=== PATIENT | male | born 1960 | race Caucasian/White ===

== ENCOUNTER 2020-12-20 19:20 | Emergency (ER) | payer OTHER, SELFPAY ==
[2020-12-20 19:27] VITALS: BP 134/67; PULSE 104; RESP 18; TEMP 36.4; O2SAT 99
[2020-12-20 19:36] VITALS: BP 134/67; PULSE 104; RESP 18; TEMP 36.4; O2SAT 99
--- NOTE | 2020-12-20 19:36 | ED.SKABFB ---
HPI - Skin/Abscess/Foreign Bdy General Chief complaint: Skin/Abscess/Foreign Body Stated complaint: spider bite Time Seen by Provider: 12/20/20 19:36 History of Present Illness HPI narrative: Puma Wright is a 60 yo obese male with a PMH of diabetes, HTN, high cholesterol, major depression, who comes to [facility] with a medial lesion of his knee that is large and reddened that he says is a spider bite. Has been there for the last 4 days; he has been washing it and putting Neosporin on it but it has continued to enlarge. Pain is rated a 6 out of 10 at all times He states his blood sugars under control, is afebrile, no nausea, vomiting, diarrhea, mildly tachycardic. Related Data Home Medications Medication Instructions Recorded Confirmed atorvastatin 80 mg PO DAILY 12/20/20 12/20/20 ezetimibe 10 mg PO DAILY 12/20/20 12/20/20 insulin glargine [Basaglar KwikPen 20 unit SUBCUT DAILY 12/20/20 12/20/20 U-100 Insulin] lisinopril-hydrochlorothiazide 1 tablet PO BID 12/20/20 12/20/20 metformin 1,000 mg PO BID 12/20/20 12/20/20 metformin 500 mg PO .QAM 12/20/20 12/20/20 metoprolol succinate 25 mg PO DAILY 12/20/20 12/20/20 Allergies Allergy/AdvReac Type Severity Reaction Status Date / Time No Known Allergies Allergy Unknown Verified 12/20/20 19:27 Review of Systems Review of Systems: Narrative: CONSTITUTIONAL: Denies fever, chills, sweats. EYES: Denies visual changes, redness, discharge. ENT: Denies rhinorrhea, congestion, sore throat, otalgia. CARDIOVASCULAR: Denies chest pain, palpitations, edema. RESPIRATORY: Denies dyspnea, wheezing, cough GASTROINTESTINAL: Denies abdominal pain, nausea, vomiting, diarrhea. GENITOURINARY: Denies dysuria, hematuria, abnormal discharge SKIN: Denies rash or itching. Has lesion on medial side of knee that measures 10 x 6.2, nonfluctuant NEUROLOGIC: Denies numbness, or focal weakness. PSYCHIATRIC: Denies anxiety or depression. [facility] Past Medical History Medical History Diabetes High cholesterol HTN (hypertension) Major depression Family History Family History Father Depression Family history of Alzheimer's disease Mother Depression Social History Social History (Updated 12/20/20 @ 19:43 by Tanvi Soto CNP) Smoking status: Former smoker Tobacco type: cigarettes Alcohol intake: never Comments At time of signature, I agree with nursing past medical, surgical, social and family history. There is no relevant family history pertinent to the presenting complaint. Exam Narrative: Exam Narrative: GENERAL: This is a well-nourished, well-developed patient, in mild distress. Disheveled, sided HEAD: normocephalic, atraumatic. EYES: Sclera clear/white. Vision is grossly intact. EARS: External ears normal,. Hearing grossly intact. NOSE: External nose normal , no rhinorrhea. THROAT: Mucous membranes moist, NECK: Neck supple, CARDIOVASCULAR: Tachycardia rate and rhythm without murmurs, gallops, or rubs. RESPIRATORY: Coarse to auscultation. Breath sounds equal bilaterally. No wheezes, rales, or rhonchi. 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 There were no obvious focal neurologic abnormalities. Steady gait EXTREMITIES: Normal range of motion. BACK: Nontender without deformity Course Course Emergency Course: Patient comes to [facility] for treatment of a left medial knee lesion that is flat nonfluctuant varies in red color that patient states is expanding Started on 2 antibiotics-Bactrim and [id number] with primary care physician-going to ER if develops a fever R leg suddenly worsens our pain increases Vital Signs Vital signs: Vital Signs Temperature 97.5 F
== END 2020-12-20 19:56 | disposition home or self-care (01) ==
PROVIDERS: Emergency Provider Nurse Practitioner
DX: L03.116 Cellulitis of left lower limb (principal); Z87.891 Personal history of nicotine dependence; E11.9 Type 2 diabetes mellitus without complications; E78.00 Pure hypercholesterolemia, unspecified; I10 Essential (primary) hypertension
CPT/HCPCS: 99211; 99213; G0463

== ENCOUNTER 2021-04-07 16:59 | Emergency (ER) | payer OTHER, SELFPAY | END 2021-04-07 17:00 | disposition left against medical advice (07) | PROVIDERS: Emergency Provider Emergency Medicine | DX: Z04.9 Encounter for examination and observation for unspecified reason (principal); Z53.8 Procedure and treatment not carried out for other reasons | CPT/HCPCS: 99199 ==

== ENCOUNTER 2021-04-08 16:14 | Emergency (ER) | payer OTHER, SELFPAY ==
[2021-04-08 16:25] VITALS: BP 120/73; PULSE 90; RESP 20; TEMP 36.4; O2SAT 100
--- NOTE | 2021-04-08 16:29 | ED.EXTPRO ---
HPI - Extremity Problem General Chief complaint: Extremity Injury, Upper Stated complaint: Thumb Pain Time Seen by Provider: 04/08/21 16:47 Source: patient and RN notes reviewed Mode of arrival: ambulatory Limitations: no limitations History of Present Illness HPI Narrative: 60-year-old male presents concern for redness, pain, swelling to the base of the nailbed of the first digit of the left hand. Reports symptoms started several days ago and have been slightly worsening. He denies any injury, nail biting. Denies any circumferential digit swelling, decreased strength, range of motion, sensation. He denies fever, body aches. MD Complaint: extremity pain Related Data Home Medications Medication Instructions Recorded Confirmed atorvastatin 80 mg PO DAILY 12/20/20 12/20/20 ezetimibe 10 mg PO DAILY 12/20/20 12/20/20 insulin glargine [Basaglar KwikPen 20 unit SUBCUT DAILY 12/20/20 12/20/20 U-100 Insulin] lisinopril-hydrochlorothiazide 1 tablet PO BID 12/20/20 12/20/20 metformin 1,000 mg PO BID 12/20/20 12/20/20 metformin 500 mg PO .QAM 12/20/20 12/20/20 metoprolol succinate 25 mg PO DAILY 12/20/20 12/20/20 Allergies Allergy/AdvReac Type Severity Reaction Status Date / Time No Known Allergies Allergy Unknown Verified 12/20/20 19:27 Review of Systems Review of Systems: CONSTITUTIONAL: Denies malaise, chills, sweats, or fever. SKIN: Reports redness, swelling, tenderness to the base of the nail of the first digit of the left hand MUSCULOSKELETAL: Denies muscle skeletal pain, decrease sensation, strength, range of motion, myalgia. NEUROLOGIC: Denies numbness, weakness All systems reviewed & are unremarkable except as noted in HPI and below PMFSH Past Medical History Medical History Diabetes High cholesterol HTN (hypertension) Major depression Family History Family History Father Depression Family history of Alzheimer's disease Mother Depression Social History Social History (Updated 12/20/20 @ 19:43 by Tanvi Soto CNP) Smoking status: Former smoker Tobacco type: cigarettes Alcohol intake: never Comments At time of signature, agree with nursing past medical, surgical, social and family history. There is no relevant family history pertinent to the presenting complaint Exam Narrative: GENERAL: Well-appearing, well-nourished, and in no acute distress. HEAD: Normocephalic EYES: PERRLA, conjunctivae clear NECK: Supple. CHEST: Speaks in full sentences. No respiratory distress. HEART: Regular rate and rhythm. Normal and equal peripheral pulses. EXTREMITIES: First digit of left hand held grossly normal strength and sensation. Range of gross motion normal. No digit cyanosis or edema noted. No muscle skeletal tenderness. Skin intact. Normal digital cascade with flexion of fingers, median, ulnar and radial nerve intact. Normal sensation of each side of finger. Normal thumb opposition. Distal capillary refill less than 3 seconds. SKIN: Warn, dry, intact, pink. No rash. Erythema, warmth, mild induration with small area of fluctuation noted to the base of the first digit of the left hand consistent with paronychia NEURO: Alert and oriented x3. PSYCH: Normal mood and affect Course Course Emergency Course: Patient is aware of diagnosis, understands and agrees to treatment plan. Anticipatory guidance given. Patient agrees to follow-up as directed and is aware of reasons to seek care at the emergency department. Portions of this record may have been created with voice recognition software Vital Signs Vital signs: Vital Signs Temperature 97.5 F L 04/08/21 16:25 Pulse Rate 90 04/08/21 16:25 Respiratory Rate 20 04/08/21 16:25 Blood Pressure 120/73 04/08/21 16:25 Pulse Oximetry 100 04/08/21 16:25 Temperature 97.5 F L 04/08/21 16:25 Pulse Rate 90 04/08/21 16:25 Respiratory Rate
== END 2021-04-08 17:22 | disposition home or self-care (01) ==
PROVIDERS: Emergency Provider Nurse Practitioner
DX: L03.012 Cellulitis of left finger (principal); E11.9 Type 2 diabetes mellitus without complications; E78.00 Pure hypercholesterolemia, unspecified; I10 Essential (primary) hypertension; F32.9 Major depressive disorder, single episode, unspecified; Z87.891 Personal history of nicotine dependence
CPT/HCPCS: 10160; 99213; G0463

== ENCOUNTER 2021-10-16 14:07 | Outpatient (CLI) | payer OTHER, SELFPAY ==
[2021-10-16 14:29] LABS: Basophils Absolute Auto 0.03 K/mm3 (0.00-0.10); Basophils Percent Auto 0.4 % (0.0-1.0); Eosinophils Absolute Auto 0.17 K/mm3 (0.02-0.50); Eosinophils Percent Auto 2.2 % (1.0-6.0); Hematocrit 42.4 % (40.0-54.0); Hemoglobin 14.6 g/dL (14.0-18.0); Immature Granulocyte Absolute 0.02 K/mm3 (0.00-0.00); Immature Granulocyte Percent A 0.3 % (0.0-0.0); Lymphocytes Absolute Auto 2.66 K/mm3 (1.10-4.50); Lymphocytes Percent Auto 33.9 % (18.0-42.0); Mean Corpuscular HGB Conc 34.4 g/dL (32.0-36.0); Mean Corpuscular Hemoglobin 32.7 pg (27.0-31.0); Mean Corpuscular Volume 94.9 fL (78.0-102.0); Mean Platelet Volume 10.1 fl (8.7-11.0); Monocytes Absolute Auto 0.62 K/mm3 (0.10-0.90); Monocytes Percent Auto 7.9 % (2.0-11.0); Neutrophils Absolute Auto 4.4 K/mm3 (1.7-7.2); Neutrophils Percent Auto 55.3 % (50.0-70.0); Platelet Count Result 324 K/mm3 (150-420); Red Blood Count 4.47 M/mm3 (4.70-6.10); Red Cell Distribution Width 13.2 % (11.6-14.4); White Blood Count 7.9 K/mm3 (4.8-10.8)
[2021-10-16 15:00] LABS: Hemoglobin A1C 7.6 % (<5.7)
[2021-10-16 15:21] LABS: Alanine Aminotransferase 55 U/L (16-63); Alkaline Phosphatase 74 U/L (46-116); Anion Gap 10 mmol/L (8-16); Aspartate Amino Transferase 23 U/L (15-37); Bilirubin,Total 0.5 mg/dL (0.00-1.00); Blood Urea Nitrogen 13 mg/dL (7-18); Calcium 9.6 mg/dL (8.5-10.1); Carbon Dioxide 25 mmol/L (21-32); Chloride 99 mmol/L (98-108); Cholesterol 231 mg/dL (0-200); Estimated Glomerular Filt Rate > 60; Glucose 139 mg/dL (70-99); HDL Direct 40 mg/dL (40-60); LDL Cholesterol Calculated 144 mg/dL (<130); Osmolality Calculated 280 mOsm/kg (285-295); Potassium 4.4 mmol/L (3.5-5.1); Sodium 134 mmol/L (136-145); Thyroid Stimulating Hormone 5.62 uIU/mL (0.36-3.74); Total Protein 7.8 g/dL (6.4-8.2); Triglycerides 234 mg/dL (0-150)
== END 2021-10-16 14:08 | disposition home or self-care (01) ==
LOC: CHSLAB 14:09
PROVIDERS: PCP Nurse Practitioner; Visit Provider Nurse Practitioner
DX: E03.9 Hypothyroidism, unspecified (principal); E11.9 Type 2 diabetes mellitus without complications; E78.5 Hyperlipidemia, unspecified; I10 Essential (primary) hypertension; Z68.41 Body mass index [BMI] 40.0-44.9, adult
CPT/HCPCS: 36415; 80053; 80061; 83036; 84439; 84443; 85025